=== PATIENT | female | born 1935 | race Caucasian/White ===

== ENCOUNTER 2019-12-20 03:01 | Emergency (ER) | payer MEDICAID, MEDICARE, OTHER ==
[~2019-12-20] VITALS: Ht 160 cm; Wt 100.0 kg
[2019-12-20] MEDS ORDERED: ASPIRIN 81MG TABLET PO ONE (03:45)
[2019-12-20 04:16] LABS: CHLORIDE 106 mEq/L (98-107)
[2019-12-20 04:22] LABS: BASOPHILS % 0.4 % (0.0-2.0); EOSINOPHILS % 0.8 % (0.0-5.0); HEMATOCRIT. 30.2 % (36.0-48.0); MEAN CORPUSCULAR HEMOGLOBIN 30.5 pg (28.0-32.0); MEAN CORPUSCULAR VOLUME 92.4 fL (81.0-99.0); MEAN PLATELET VOLUME 9.1 fl (7.4-10.4); MONOCYTES % 8.3 % (2.0-8.0); NEUTROPHILS % 77.5 % (40.0-76.0); PLATELET 195 x1000/uL (130-400); RED BLOOD CELL COUNT 3.27 mill/uL (4.2-5.4)
[2019-12-20] MEDS ORDERED: ENOXAPARIN 100MG/ML SYR SUBCUT NR (05:02)
[2019-12-20 10:05] VITALS: BP 118/46
== END 2019-12-20 10:07 | disposition short-term general hospital (02) ==
LOC: ER 03:01 → CANBEDREQ 10:05 → ER 10:07
DX: I11.0 Hypertensive heart disease with heart failure (principal); I50.9 Heart failure, unspecified; Z20.828 Contact with and (suspected) exposure to other viral communicable diseases; E11.9 Type 2 diabetes mellitus without complications; F41.9 Anxiety disorder, unspecified; Z91.19 Patient's noncompliance with other medical treatment and regimen
CPT/HCPCS: 36415; 71045; 80053; 82962; 83615; 83880; 84484; 85025; 85379; 87635; 93005; 96372; 99285; C9803; J1650